=== PATIENT | female | born 1995 | race Caucasian/White ===

== ENCOUNTER 2019-02-12 13:56 | Emergency (ER) | payer OTHER ==
[2019-02-12 14:03] VITALS: BP 103/68
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
[2019-02-12] MEDS ORDERED: IBUPROFEN 600 MG TAB PO ONE (15:33)
[2019-02-12] MEDS ORDERED: ULIPRISTAL ACETATE 30 MG TAB PO ONE (15:33)
== END 2019-02-12 17:35 | disposition home or self-care (01) ==
LOC: EEVIPCON 13:56
DX: T74.21XA Adult sexual abuse, confirmed, initial encounter (principal)

== ENCOUNTER 2019-05-10 16:38 | Emergency (ER) | payer OTHER | END 2019-05-10 17:36 | disposition home or self-care (01) ==